=== PATIENT | female | born 2005 | race Caucasian/White ===

== ENCOUNTER 2024-02-04 16:53 | Emergency (ER) | payer OTHER, SELFPAY ==
[2024-02-04 17:27] VITALS: BP 126/74; PULSE 121; RESP 16; TEMP 36.9; O2SAT 100
[2024-02-04 17:47] LABS: Basophils Percent Auto 0.1 % (0.2-1.2); Eosinophils Percent Auto 0.1 % (0-4.4); Hematocrit 42.9 % (37.0-47.0); Hemoglobin 14.3 g/dL (12.0-15.0); Immature Granulocyte Absolute 0.06 K/mm3 (0.00-0.031); Immature Granulocyte Percent A 0.4 % (0-0.5); Lymphocytes Absolute Auto 1.32 K/mm3 (0.9-3.2); Lymphocytes Percent Auto 7.9 % (18.3-44.2); Mean Corpuscular HGB Conc 33.3 g/dl (32-36); Mean Corpuscular Hemoglobin 30.2 pg (26-34); Mean Corpuscular Volume 90.7 fl (80-100); Mean Platelet Volume 9.8 fl (7.4-10.4); Monocytes Absolute Auto 1.6 K/mm3 (0.1-0.6); Monocytes Percent Auto 9.7 % (2.6-8.5); Neutrophils Absolute Auto 13.6 K/mm3 (1.3-6.7); Neutrophils Percent Auto 81.8 % (45.5-73.1); Platelet Count Result 256 k/mm3 (150-375); Red Blood Count 4.73 M/mm3 (4.2-5.4); Red Cell Distribution Width 12.1 % (11.5-14.5); White Blood Count 16.6 K/mm3 (4.5-10.0)
[2024-02-04 17:57] LABS: Alanine Aminotransferase 12 U/L (6-35); Albumin Level 4.9 g/dL (3.5-5.1); Alkaline Phosphatase 66 U/L (38-126); Anion Gap 7 mmol/L (4-12); Aspartate Amino Transferase 23 U/L (14-36); Bilirubin,Total 1.1 mg/dL (0.2-1.3); Blood Urea Nitrogen 9 mg/dL (7-17); Calcium 9.9 mg/dL (8.4-10.2); Carbon Dioxide 27 mmol/L (22-30); Chloride 101 mmol/L (98-107); Estimated CRCL calculation 77 ml/min; Estimated Glomerular Filt Rate > 60; Glucose 95 mg/dL (65-110); Lipase 45 U/L (23-300); Potassium 3.7 mmol/L (3.4-5.0); Sodium 135 mmol/L (137-145)
[2024-02-04 18:42] LABS: BEDSIDEPREGUCG Negative (Negative)
[2024-02-04 18:44] LABS: Add Urine Microscopic? YES; Appearance Urine Clear (Clear); Color Urine Orange (Yellow); Glucose Urine UA Trace mg/dL (Negative); Ketones Urine 4+ mg/dL (Negative); Nitrate Urine Positive (Negative); Protein Urine 2+ mg/dL (Negative)
[2024-02-04 18:45] LABS: Bilirubin Urine 1+ (Negative); Blood Urine 2+ (Negative); Leukocyte Esterase Ur 3+ LEU/UL (Negative)
[2024-02-04 18:47] LABS: RBC Urine 51-75 /hpf (0-2); Squamous Epithelial Cell Urine Few /hpf (Few); WBC Clumps Urine Present /HPF; WBC Urine >100 /hpf (0-3)
[2024-02-04 18:48] LABS: Bacteria Urine 2+ /hpf
--- NOTE | 2024-02-04 19:09 | ED_ITS ---
HPI - Abdominal Pain General Chief Complaint: Abdominal Pain Stated Complaint: L sided abd pain recent UTI, nausea, dizzy Time Seen by Provider: 02/04/24 18:50 History of Present Illness HPI narrative: 18 y/o F with no PMHx presents to the emergency department with parents at bedside for UTI symptoms. Patient began to have urinary frequency and urgency approximately 10 days ago. Three days ago she began having pain in her suprapubic region. Her mother works for child [employer] so she brought in a urine sample in to the child development assistant office where they obtained a dipstick urine test in the patient tested positive for UTI. Macrobid was sent to the pharmacy. Patient states she has taken 3 doses of this but her symptoms have worsened which prompted her to come the ED. She reports a fever, T-max a 100.8?. She reports associated nausea and vomiting and low back pain. She denies vaginal discharge or concern for STDs. Related Data Allergies Allergy/AdvReac Type Severity Reaction Status Date / Time No Known Allergies Allergy Verified 02/04/24 16:54 Review of Systems 2 Review of Systems: All systems reviewed & are unremarkable except as noted in HPI and below Exam 2 Narrative: GENERAL: Well-appearing, well-nourished, and in no acute distress. HEAD: Normocephalic, atraumatic. EYES: EOMI. ENT: Nares clear, no rhinorrhea or epistaxis. Mucous membranes moist. NECK: Supple. CHEST: Clear to auscultation. No respiratory distress. HEART: Regular rate and rhythm. No murmur heard. Normal peripheral pulses. ABDOMEN: Normoactive bowel sounds. Abdomen soft tenderness in suprapubic region. No rebound or rigidity. Minimal left-sided CVA tenderness EXTREMITIES: Normal range of motion. No edema. SKIN: Warm, dry, no rash. NEURO: No focal deficits. Alert and oriented x3 Course Vital Signs Vital signs: Vital Signs Temperature 98.4 F 02/04/24 17: Pulse Rate 121 H 02/04/24 17: Respiratory Rate 16 02/04/24 17: Blood Pressure 126/74 02/04/24 17: Pulse Oximetry 100 02/04/24 17:27 Temperature 98.4 F 02/04/24 17:27 Pulse Rate 121 H 02/04/24 17:27 Respiratory Rate 16 02/04/24 17:27 Blood Pressure 126/74 02/04/24 17:27 Pulse Oximetry 100 02/04/24 17:27 MDM - Abdominal Pain MDM Narrative Medical decision making narrative: 18-year-old female with no past medical history presents to the emergency department for 10 days of urinary frequency urgency, 3 days of suprapubic abdominal pain, fever, nausea and vomiting. Patient has taken 3 doses of Macrobid outpatient with progressive symptoms. Upon arrival to the ED her heart rate is elevated at 121. She is afebrile and very well-appearing on exam. She is pleasant conversational. Exam significant for suprapubic tenderness and minimal left-sided CVA tenderness. Lab work shows leukocytosis of 16.6, no bandemia. ESR is elevated at 22 and CRP is elevated at 8.7. Chemistries are unremarkable with a stable creatinine of 0.8 and BUN of 9. Urinalysis is significantly infected with greater than 100 wbc's, WBC clumps, nitrites, 3+ leuk esterase. Patient also has 4+ ketonuria. Urine culture pending. is negative. Lactic acid is not elevated. Shared decision making regarding obtaining the CT abdomen pelvis to rule out ureterolithiasis. Patient and family are both politely declining this and agree that is presentation is most consistent with pyelonephritis. Patient received IV fluids, Rocephin, Zofran and Toradol with significant improvement. Upon re-evaluation she states she feels much better. Tachycardia has resolved. Shared decision making regarding disposition. Patient and family both feel safe with discharge home. Patient was advised to discontinue the Macrobid, will start ciprofloxacin for pyelonephritis and provide Reglan for nausea. Discussed close follow-up with PCP and strict ED return precautions. She and her parents are agreeable with the plan verbalized understanding. Discharged in stable condition. Lab Data 02/04/24 17:39 02/04/24 17:39 Labs: Lab Results 02/04/24 02/04/24 02/04/24 Range/Units 17:38 17:39 17:48 WBC 16.6 H (4.5-10.0) K/mm3 RBC 4.73 (4.2-5.4) M/mm3 Hgb 14.3 (12.0-15.0) g/dL Hct 42.9 (37.0-47.0) % MCV 90.7 (80-100) fl MCH 30.2 (26-34) pg MCHC 33.3 (32-36) g/dl RDW 12.1 (11.5-14.5) % Plt Count 256 (150-375) k/mm3 MPV 9.8 (7.4-10.4) fl Immature Gran % (Auto) 0.4 (0-0.5) % Neut % (Auto) 81.8 H (45.5-73.1) % Lymph % (Auto) 7.9 L (18.3-44.2) % [place] % (Auto) 9.7 H (2.6-8.5) % Eos % (Auto) 0.1 (0-4.4) % Baso % (Auto) 0.1 L (0.2-1.2) % Lymph # (Auto) 1.32 (0.9-3.2) K/mm3 [place] # (Auto) 1.6 H (0.1-0.6) K/mm3 Eos # (Auto) 0.0 (0-0.3) K/mm3 Baso # (Auto) 0.0 (0.0-0.1) K/mm3 Abs Immat Gran (auto) 0.06 H (0.00-0.031) K/mm3 Absolute Neuts (auto) 13.6 H (1.3-6.7) K/mm3 Absolute Nucleated RBC 0.000 (0.0-0.012) K/mm3 Nucleated RBC % 0.0 (0.0-0.2) % ESR 22 H (0-20) mm/hr Sodium 135 L (137-145) mmol/L Potassium 3.7 (3.4-5.0) mmol/L Chloride 101 (98-107) mmol/L Carbon Dioxide 27 (22-30) mmol/L Anion Gap 7 (4-12) mmol/L BUN 9 (7-17) mg/dL Creatinine 0.80 (0.7-1.0) mg/dL Estim Creat Clear Calc 77 ml/min Estimated GFR > 60 (59 - ) Glucose 95 (65-110) mg/dL Lactic Acid (0.7-2.0) mmol/L Calcium 9.9 (8.4-10.2) mg/dL Total Bilirubin 1.1 (0.2-1.3) mg/dL AST 23 (14-36) U/L ALT 12 (6-35) U/L Alkaline Phosphatase 66 (38-126) U/L C-Reactive Protein 8.7 H (<1.0) mg/dL Total Protein 10.0 H (6.3-8.2) g/dL Albumin 4.9 (3.5-5.1) g/dL Lipase 45 (23-300) U/L Urine Color [place] H (Yellow) Urine Appearance Clear (Clear) Urine pH 5.0 (5.0-9.0) Ur Specific [place] 1.010 (1.001-1.035) Urine Protein 2+ H (Negative) mg/dL Urine Glucose (UA) Trace H (Negative) mg/dL Urine Ketones 4+ H (Negative) mg/dL Ur Blood (Man) 2+ H (Negative) Urine Nitrate Positive H (Negative) Urine Bilirubin 1+ H (Negative) Urine Urobilinogen 4.0 H (<2.0) mg/dL Leukocyte Esterase Rfl 3+ H (Negative) RICHARD/UL Urine RBC 51-75 H (0-2) /hpf Urine WBC >100 H (0-3) /hpf Urine WBC Clumps Present H (None) /HPF Ur Squamous Epith Cells Few (Few) /hpf Urine Bacteria 2+ H /hpf POC Urine HCG, Qual (Negative) 02/04/24 02/04/24 Range/Units 18:40 20:06 WBC (4.5-10.0) K/mm3 RBC (4.2-5.4) M/mm3 Hgb (12.0-15.0) g/dL Hct (37.0-47.0) % MCV (80-100) fl MCH (26-34) pg MCHC (32-36) g/dl RDW (11.5-14.5) % Plt Count (150-375) k/mm3 MPV (7.4-10.4) fl Immature Gran % (Auto) (0-0.5) % Neut % (Auto) (45.5-73.1) % Lymph % (Auto) (18.3-44.2) % [place] % (Auto) (2.6-8.5) % Eos % (Auto) (0-4.4) % Baso % (Auto) (0.2-1.2) % Lymph # (Auto) (0.9-3.2) K/mm3 [place] # (Auto) (0.1-0.6) K/mm3 Eos # (Auto) (0-0.3) K/mm3 Baso # (Auto) (0.0-0.1) K/mm3 Abs Immat Gran (auto) (0.00-0.031) K/mm3 Absolute Neuts (auto) (1.3-6.7) K/mm3 Absolute Nucleated RBC (0.0-0.012) K/mm3 Nucleated RBC % (0.0-0.2) % ESR (0-20) mm/hr Sodium (137-145) mmol/L Potassium (3.4-5.0) mmol/L Chloride (98-107) mmol/L Carbon Dioxide (22-30) mmol/L Anion Gap (4-12) mmol/L BUN (7-17) mg/dL Creatinine (0.7-1.0) mg/dL Estim Creat Clear Calc ml/min Estimated GFR (59 - ) Glucose (65-110) mg/dL Lactic Acid 0.6 L (0.7-2.0) mmol/L Calcium (8.4-10.2) mg/dL Total Bilirubin (0.2-1.3) mg/dL AST (14-36) U/L ALT (6-35) U/L Alkaline Phosphatase (38-126) U/L C-Reactive Protein (<1.0) mg/dL Total Protein (6.3-8.2) g/dL Albumin (3.5-5.1) g/dL Lipase (23-300) U/L Urine Color (Yellow) Urine Appearance (Clear) Urine pH (5.0-9.0) Ur Specific [place] (1.001-1.035) Urine Protein (Negative) mg/dL Urine Glucose (UA) (Negative) mg/dL Urine Ketones (Negative) mg/dL Ur Blood (Man) (Negative) Urine Nitrate (Negative) Urine Bilirubin (Negative) Urine Urobilinogen (<2.0) mg/dL Leukocyte Esterase Rfl (Negative) RICHARD/UL Urine RBC (0-2) /hpf Urine WBC (0-3) /hpf Urine WBC Clumps (None) /HPF Ur Squamous Epith Cells (Few) /hpf Urine Bacteria /hpf POC Urine HCG, Qual Negative (Negative) Discharge Plan Discharge Clinical Impression: Pyelonephritis Patient Disposition: Home, Self-Care Condition: Stable Instructions: Antibiotic Form, Kidney Infection (ED) Additional Instructions: Take your antibiotics as directed. Drink plenty of fluids including water, Gatorade and Pedialyte. Follow up with her primary care provider. Return to the emergency department if you develop fever, your unable to tolerate food or fluids, worsening or changing abdominal pain or flank pain, or other concerning symptoms. Patient Language: [place] Prescriptions: New ciprofloxacin HCl 500 mg tablet 500 mg PO Q12H Qty: 14 0RF metoclopramide HCl 10 mg tablet 10 mg PO Q6H PRN (Reason: nausea and vomiting) Qty: 14 0RF ibuprofen 800 mg tablet 800 mg PO TID PRN (Reason: pain) Qty: 20 0RF Follow-up/Referrals: Yesi Flood MD [Physician] -
[2024-02-04 19:33] LABS: CRP 8.7 mg/dL (<1.0)
[2024-02-04 19:49] LABS: Erythrocyte Sedimentation Rate 22 mm/hr (0-20)
[2024-02-04 20:22] LABS: Lactic Acid Reflex 0.6 mmol/L (0.7-2.0)
[2024-02-04] MEDS: ONDANSETRON INJ 4 MG/2 ML VIAL IV PUSH (20:30)
[2024-02-04] MEDS: SODIUM CHLORIDE 0.9% IV 1,000 ML 999 ML IV CONT (20:30)
[2024-02-04] MEDS: KETOROLAC 15 MG/ML VIAL (*BKC) IV PUSH (20:35)
[2024-02-04 21:12] VITALS: BP 105/64; PULSE 84; RESP 19; O2SAT 99
== END 2024-02-04 21:50 | disposition home or self-care (01) ==
PROVIDERS: Student in an Organized Health Care Education/Training Program; Emergency Provider Physician Assistant
DX: N12 Tubulo-interstitial nephritis, not specified as acute or chronic (principal)
CPT/HCPCS: 36415; 80053; 81001; 81025; 83605; 83690; 85025; 85652; 86140; 87040; 87086; 96365; 96375; 99284; J0696; J1885; J2405; J7030